=== PATIENT | male | born 1980 | race Caucasian/White ===

== ENCOUNTER 2024-12-25 23:00 | Emergency (ER) | payer BC ==
[~2024-12-25] VITALS: Ht 182.9 cm; Wt 95.3 kg
[2024-12-25 23:35] LABS: LEUKOCYTE ESTERASE ,URINE NEGATIVE (NEGATIVE); PROTEIN,URINE DIPSTICK >=300 (NEGATIVE); URINE UROBILINOGEN 1 mg/dL (0.2 - 1)
[2024-12-25 23:37] LABS: EPITHELIAL CELLS,URINE RARE /LPF; WBC,URINE (MAN) 0-5 /HPF (0-5)
[2024-12-26] MEDS ORDERED: KETOROLAC TROMETHAMINE 30 MG/ML VIAL ONE (00:11)
[2024-12-26] MEDS ORDERED: ONDANSETRON HCL INJ 2MG/ML 2ML 2 MG/ML VIAL ONE (00:11)
[2024-12-26 00:26] LABS: BASOPHILS % 0.3 % (0.0-1.0); EOSINOPHILS % 0.4 % (0.0-6.0); LYMPHOCYTES % 11.4 % (18.0-39.1); MONOCYTES % 5.4 % (4.4-11.3); NEUTROPHILS % 82.2 % (38.7-80.0); RED CELL DISTRIBUTION WIDTH 13.0 % (11.7-14.4)
[2024-12-26 00:46] LABS: EST GLOMERULAR FILTRATION RATE 100.0 ML/MIN (>=60)
[2024-12-26] MEDS: KETOROLAC TROMETHAMINE 30 MG/ML VIAL IV STA (00:51)
[2024-12-26] MEDS: ONDANSETRON HCL INJ 2MG/ML 2ML 2 MG/ML VIAL IV STA (00:52)
[2024-12-26] MEDS ORDERED: KETOROLAC TROME10 MG PO (03:07)
[2024-12-26] MEDS ORDERED: ONDANSETRON ODT4 MG SL (03:07)
[2024-12-26] MEDS ORDERED: FLOMAX0.4 MG PO (03:07)
[2024-12-26] MEDS ORDERED: HYDROCODON-ACE1 EA12 PO (03:07)
[2024-12-26] MEDS ORDERED: MACROBID 100 M100 MG PO (03:07)
[2024-12-26 03:10] VITALS: PULSE 84; RESP 16; TEMP 99.1; O2SAT 96
== END 2024-12-26 03:20 | disposition home or self-care (01) ==
LOC: ER 12-26 00:04
DX: R11.2 Nausea with vomiting, unspecified (principal); N13.2 Hydronephrosis with renal and ureteral calculous obstruction; R82.998 Other abnormal findings in urine; R10.9 Unspecified abdominal pain; K76.0 Fatty (change of) liver, not elsewhere classified; F17.210 Nicotine dependence, cigarettes, uncomplicated
CPT/HCPCS: 36415; 74176; 80048; 81001; 85025; 99284; J1885; J2405